=== PATIENT | female | born 1990 | race Caucasian/White ===

== ENCOUNTER 2018-01-11 08:47 | Day surgery (SDC) | payer OTHER ==
[2018-01-09 14:44] LABS: Absolute Lymphocytes (CBC) 2.9 K/uL (0.7-4.9); Absolute Monocytes 0.6 K/uL (0.1-1.3); Absolute Neutrophil 5.2 K/uL (1.8-8.0); Basophils % 0.5 % (0-1.3); Eosinophils % 1.7 % (0-4.4); Hematocrit 43.1 % (36.0-45.0); MCH 29.7 pg (27.0-35.0); MCV 87.8 fL (80-100); MPV 8.4 fL (7.6-11.3); Monocytes % 6.3 % (3.3-12.3); RBC Red Blood Cell Count 4.91 M/uL (3.86-4.86)
[2018-01-11 09:14] LABS: Specific Gravity 1.025 (1.005-1.030)
[2018-01-11] MEDS ORDERED: Ringers Lactate 1,000 ML IV ONE ×2 (09:36→11:39)
[2018-01-11] MEDS ORDERED: PHENYLEPHRINE 10% OPTH 5ML ONE (09:51)
[2018-01-11] MEDS ORDERED: Ciprofloxacin 200mg IV 400 MG/200 ML IV.SOLN. IV ONE (09:58)
[2018-01-11] MEDS ORDERED: MIDAZOLAM HCL 2 MG/2 ML INJ ONE ×2 (10:05→10:46)
[2018-01-11] MEDS ORDERED: ROCURONIUM 50 MG/5 ML VIAL IV ONE ×2 (10:05→11:27)
[2018-01-11] MEDS ORDERED: LIDOCAINE 1% MPF 5 ML VIAL ONE (10:05)
[2018-01-11] MEDS ORDERED: PROPOFOL 200 MG/20 ML VIAL IV ONE (10:05)
[2018-01-11] MEDS ORDERED: FENTANYL CITR 100 MCG/2 ML ONE ×2 (10:05→10:54)
[2018-01-11] MEDS ORDERED: GLYCOPYRROLATE 0.2 MG/ML SYR ONE ×2 (11:33)
[2018-01-11] MEDS ORDERED: NEOSTIGMINE 1 MG/ML -5 ML SYRINGE ONE (11:34)
[2018-01-11] MEDS ORDERED: ONDANSETRON 4 MG/2 ML VIAL ONE (11:35)
[2018-01-11] MEDS: MEPERIDINE HCL 50 MG/ML AMP ONE ×2 (11:51→12:05)
[2018-01-11] MEDS ORDERED: PROMETHAZINE 25 MG/ML VIAL ONE (12:07)
[2018-01-11] MEDS ORDERED: MEPERIDINE HCL 25 MG/0.5 ML ONE (12:35)
[2018-01-11] MEDS ORDERED: HYDROCODONE/APAP 7.5/325 MG TAB PO ONE (13:25)
[2018-01-11] MEDS ORDERED: HYDROCODONE/APAP 7.5/325 MG TAB ONE (13:45)
[2018-01-11 14:37] VITALS: BP 129/84; TEMP 98; O2SAT 95
--- NOTE | 2018-01-11 22:41 | OP ---
Date of Procedure: 01/11/2018 Surgeon: Darrian Amanda MD Horticulture Professor: BAYRON Evangelista. Preoperative Diagnosis: Ventral hernia. Postoperative Diagnosis: Incarcerated ventral hernia with omentum. Procedure Performed: Laparoscopic-assisted repair of incarcerated ventral hernia. Estimated Blood Loss: Minimal. Specimen: Hernia sac. Findings: As above. Anesthesia: General. Complications: None. Disposition: The patient tolerated the procedure well in stable condition and taken to Recovery in g ood general condition. Procedure In Detail: The patient was brought to the OR and placed in the supine position. General a nesthesia was begun. The patient was prepped and draped in usual sterile fashion. Marcaine 0.5% was infiltrated locally. A 15-blade was used to make a 2 cm left upper quadrant incision. Subcutaneous tissues were divided. Fascia was identified and divided. A #1 Vicryl stay suture was placed. Adore toneal cavity was entered with sharp and blunt dissection. A 12-mm trocar was placed into the perito dominic cavity under direct vision. Pneumoperitoneum was established and then 5-mm trocar was placed in the left lower quadrant. Laparoscopy revealed incarcerated ventral hernia with omentum in it, which was reduced with sharp and blunt dissection. Bleeding controlled with cautery. Then, approximately 8 cm incision was made over the hernia itself. There was a large hernia sac present, which was exci sed down to the fascial defect which was approximately 4 cm in diameter and then the hernia sac was e xcised, sent to Pathology as specimen. Good fascial edges were obtained and primary closure of the h ernia defect was done with #1 running PDS suture. Then, a large Bard mesh with the balloon system wa s placed in the peritoneal cavity and standard technique was used to secure the mesh to the peritonea l surface with complete coverage of the entire weakened ventral hernia area. There was no evidence o f bleeding or bowel injury appreciated. The balloon mechanism was removed. All parts were intact. There was another trocar that was placed in the right middle quadrant to help with Tacker, which was the absorbable Tacker was used and then all trocars were removed under direct vision. Stay sutures w ere tied to each other across the fascial defect. Subcutaneous wounds were irrigated. Bleeding cont rolled with cautery. A 3-0 chromic used for subcutaneous tissue and natalie used to close skin. Abimael rile dressing was applied. The patient was awakened and taken to Recovery in good general condition. /MODCharles Voice ID: [id number] Report ID: [id number]
--- NOTE | 2018-01-11 22:47 | DS ---
Date of Discharge: 01/11/2018 Discharge Note: The patient will go to Day Surgery and home when stable. Disposition: Home. Condition: Stable. Discharge Instructions: Resume home medications and diet. Activity as tolerated. No heavy lifting. Remove outer dressing in 2 days. Shower. Keep wound clean and dry, abdominal binder, incentive sp irometry. Tylenol #3 one tablet p.o. q.4 hours p.r.n. pain and follow up in my office in a week. Kiesha franco for appointment. RICO/CONCHIS Voice ID: [id number] Report ID: [id number]
== END 2018-01-11 14:10 | disposition home or self-care (01) ==
LOC: OR 08:47
PROVIDERS: ATTEND Surgery
PROC: 0WUF0JZ Supplement Abdominal Wall with Synthetic Substitute, Open Approach (ICD-10-PCS; principal; 2018-01-11 10:30)
DX: K43.6 Other and unspecified ventral hernia with obstruction, without gangrene (principal); Z88.0 Allergy status to penicillin; Z83.3 Family history of diabetes mellitus; Z82.49 Family history of ischemic heart disease and other diseases of the circulatory system
CPT/HCPCS: 36415; 81025; 85025; 88302; J0744; J2175; J2250; J2405; J2550; J2710; J3010

== ENCOUNTER 2019-07-06 10:56 | Emergency (ER) | payer OTHER ==
--- NOTE | 2019-07-06 11:50 | RAD REPORT ---
EXAM DESCRIPTION: CT - Ct Stroke Brain Wo Cont - 07/06/2019 11:39 am CLINICAL HISTORY: Numbness COMPARISON: none TECHNIQUE: Computed axial tomography of the head was obtained. All CT scans are performed using dose optimization technique as appropriate and may include automated exposure control or mA/KV adjustment according to patient size. FINDINGS: An intracranial bleed is not seen . The ventricles are normal in caliber. No extra-axial fluid collection is noted. Fluid within the sinuses/ mastoids is not seen. IMPRESSION: No acute intracranial abnormality is seen. If patient's symptoms persist MRI of the bra in would be recommended. Bishop of the emergency room was notified at 11:44 a.m. July 06, 2019
[2019-07-06] MEDS ORDERED: ASPIRIN 81 MG CHEWABLE TABLET ONE (11:55)
[2019-07-06] MEDS ORDERED: FOLIC ACID 5 MG/ML VIAL ONE (11:56)
[2019-07-06 12:06] LABS: Absolute Lymphocytes (CBC) 1.9 K/uL (0.7-4.9); Basophils % 0.5 % (0-1.3); Hematocrit 42.6 % (36.0-45.0); Lymphocytes % 24.6 % (15.3-44.8); MPV 8.6 fL (7.6-11.3)
[2019-07-06 12:10] LABS: Protime INR 1.11
[2019-07-06 12:14] LABS: Potassium 3.6 mmol/L (3.5-5.1)
--- NOTE | 2019-07-06 12:50 | RAD REPORT ---
EXAM DESCRIPTION: Halle Single View07/06/2019 12:41 pm CLINICAL HISTORY: Chest pain COMPARISON: 2011 FINDINGS: The lungs appear clear of acute infiltrate. The heart is normal size IMPRESSION: No acute abnormalities displayed
--- NOTE | 2019-07-06 12:58 | RAD REPORT ---
EXAM DESCRIPTION: MRI - Brain Wo Cont - 07/06/2019 12:25 pm CLINICAL HISTORY: Headache and numbness COMPARISON: July 06, 2019 TECHNIQUE: Axial, sagittal, and coronal magnetic images of the brain were obtained. Contrast was not requested FINDINGS: No abnormal signal is present within the brain. Diffusion-weighted/ADC mapping does not reveal evidence of acute infarction. The ventricles are normal caliber. An extra-axial fluid collection is not present The sinuses and mastoids are clear. IMPRESSION: Unremarkable unenhanced brain MRI
--- NOTE | 2019-07-06 13:30 | EKG ---
Test Date: 2019-07-06 Test Time: 11:44:17 Social Secretary: NORRIS MEASUREMENT RESULTS: Intervals: Rate: 65 WY: 124 QRSD: 80 QT: 406 QTc: 422 [place]: P: 12 WY: 124 QRS: 57 T: 28 INTERPRETIVE STATEMENTS: Normal sinus rhythm Normal ECG Compared to ECG 04/17/2002 07:47:00 No significant changes Electronically Signed On 07-06-19 13:29:44 CDT by Jay Veras
--- NOTE | 2019-07-06 14:03 | EDPHYS ---
Physician Documentation [facility] Name: Zayra Dockery Age: 28 yrs Sex: Female : 1990 Arrival Date: 07/06/2019 Time: 10:57 Bed 17 Private MD: ED Physician Francis Li HPI: 07/06 11:35 This 28 yrs old Female presents to ER via Unassigned with complaints of jmm Numbness - L Side, Headache. 11:35 The patient's problem is reported as paresthesias, in left upper extremity, in left jmm lower extremity. Onset: The symptoms/episode began/occurred at 10:30. Duration: This was a single incident. This is a 28 year old female with no chronic medical conditions that presents to the ED with complaints of frontal headache beginning this morning at 0630. Patient states she developed numbness to the left side of her jaw, left forearm, and left foot beginning at approx 1030 am. Patient states numbness is improving. Denies chest pain. Denies weakness. 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 - Social history:: Smoking status: Patient/guardian denies using tobacco. - Ebola Screening: : Patient denies travel to an Ebola-affected area in the 21 days before illness onset. ROS: 11:35 Constitutional: Negative for fever, chills, and weight loss, Cardiovascular: Negative jmm for chest pain, palpitations, and edema, Respiratory: Negative for shortness of breath, cough, wheezing, and pleuritic chest pain. 11:35 Neuro: Positive for headache, numbness. 11:35 All other systems are negative. Exam: 11:35 Constitutional: This is a well developed, well nourished patient who is awake, alert, jmm and in no acute distress. Head/Face: atraumatic. Eyes: EOMI, no conjunctival erythema appreciated ENT: Moist Mucus Membranes Neck: Trachea midline, Supple Chest/axilla: Normal chest wall appearance and motion. Cardiovascular: Regular rate and rhythm. No edema appreciated Respiratory: Normal respirations, no respiratory distress appreciated Abdomen/GI: Non distended, soft Back: Normal ROM Skin: General appearance color normal MS/ Extremity: Moves all extremities, no obvious deformities appreciated, no edema noted to the lower extremities 11:35 Neuro: Orientation: is normal, Mentation: is normal, Memory: is normal, Cerebellar function: normal finger to nose testing, heel to nichole testing is normal, Motor: is normal, Sensation: is normal, Gait: is steady. 11:46 ECG was reviewed by the Attending Physician. [facility] Vital Signs: 11:26 BP 139 / 100; Pulse 67; Resp 18; Temp 98.7(TE); Pulse Ox 97% on R/A; Weight 99.79 kg tw2 (R); Height 5 ft. 8 in. (172.72 cm) (R); Pain 6/10; 12:00 BP 144 / 130; Pulse 68; Resp 18; Pulse Ox 97% on R/A; mh5 13:01 BP 114 / 84; Pulse 55; Resp 17; Temp 98.0(TE); Pulse Ox 98% on R/A; mh5 13:42 BP 115 / 88; Pulse 69; Resp 15; Temp 97.8(TE); Pulse Ox 100% ; mh5 15:12 BP 115 / 84; Pulse 58; Resp 17; Pulse Ox 99% on R/A; tw2 11:26 Body Mass Index 33.45 (99.79 kg, 172.72 cm) tw2 NIH Stroke Scale Scores: 11:26 NIHSS Score: 1 tw2 11:35 NIHSS Score: 0 [facility] MDM: 11:23 Patient medically screened. [facility] 14:00 Data reviewed: vital signs, nurses notes. Counseling: I had a detailed discussion with [facility] the patient and/or guardian regarding: the historical points, exam findings, and any diagnostic results supporting the discharge/admit diagnosis, lab results, radiology results, the need for outpatient follow up, to return to the emergency department if symptoms worsen or persist or if there are any questions or concerns that arise at home. ED course: imaging studies negative. symptoms have resolved in the ED. Patient advised to follow up with neuro for reevaluation. patient was otherwise given strict return precautions. patient understood and agrees with the plan of care. . 07/06 11:33 Order name: Basic Metabolic Panel [facility] 07/06 11:33 Order name: CBC with Diff [facility] 07/06 11:33 Order name: Protime (+inr) [facility] 07/06 11:33 Order name: Ptt, Activated [facility] 07/06 11:54 Order name: Glucose, Ancillary Testing; Complete Time: 12:01 EDMS 07/06 12:14 Order name: CBC with Automated Diff; Complete Time: 12:42 EDMS 07/06 11:33 Order name: CT Stroke Brain w/o Contrast [facility] 07/06 11:33 Order name: Stroke CXR 1 View [facility] 07/06 11:45 Order name: MRI - Brain Wo Cont; Complete Time: 13:52 [facility] 07/06 12:15 Order name: Basic Metabolic Panel; Complete Time: 12:42 EDMS 07/06 12:17 Order name: CT; Complete Time: 12:42 EDMS 07/06 12:18 Order name: Protime (+INR); Complete Time: 12:42 EDMS 07/06 12:18 Order name: PTT, Activated Partial Thromb; Complete Time: 12:42 EDMS 07/06 13:05 Order name: RAD; Complete Time: 13:52 EDMS 07/06 11:33 Order name: EKG; Complete Time: 11:35 [facility] 07/06 11:33 Order name: Accucheck; Complete Time: 12:12 [facility] 07/06 11:33 Order name: Cardiac monitoring; Complete Time: 12:12 [facility] 07/06 11:33 Order name: EKG - Nurse/Tech; Complete Time: 12:12 [facility] 07/06 11:33 Order name: IV Saline Lock; Complete Time: 12:13 [facility] 07/06 11:33 Order name: Labs collected and sent; Complete Time: 12:13 [facility] 07/06 11:33 Order name: NPO; Complete Time: 12:13 [facility] 07/06 11:33 Order name: O2 Per Protocol; Complete Time: 12:13 [facility] 07/06 11:33 Order name: O2 Sat Monitoring; Complete Time: 12:13 [facility] 07/06 11:33 Order name: Stroke Swallow Screen; Complete Time: 12:13 [facility] EC:46 Rate is 65 beats/min. Rhythm is regular. QRS [place] is Normal. AR interval is normal. QRS jmm interval is normal. QT interval is normal. No Q waves. T waves are Normal. No ST changes noted. Reviewed by me. Administered Medications: 12:00 Drug: Aspirin Chewable Tablet 324 mg Route: PO; tw2 12:13 Follow up: Response: No adverse reaction tw2 12:00 Drug: foLIC Acid 1 mg Route: IVPB; Site: right wrist; tw2 12:03 Follow up: Response: No adverse reaction; IV Status: Completed infusion tw2 14:48 Drug: Reglan 10 mg Route: IVP; Site: right wrist; tw2 15:09 Follow up: Response: No adverse reaction; infusion complete, 10 mg in 100 ml NS tw2 Point of Care Testing: Blood Glucose: 11:52 Blood Glucose: 95 mg/dL; ph Ranges: Critical Glucose Levels:Adult <50 mg/dl or >400 mg/dl <40 mg/dl or >180 mg/dl Disposition: 15:52 Co-signature as Attending Physician, Francis Li MD I agree with the assessment and vidal plan of care. Disposition: 07/06/19 14:02 Discharged to Home. Impression: Headache, Paresthesia of skin. - Condition is Stable. - Discharge Instructions: Migraine Headache, Paresthesia. - Medication Reconciliation Form, Thank You Letter, Antibiotic Education, Prescription Opioid Use, Work release form, Family Work Release form. - Follow up: Mode Robertson MD; When: 2 - 3 days; Reason: Recheck today's complaints, Continuance of care, Re-evaluation by your physician. NIH Stroke Scale - NIH Stroke Score Date: 07/06/2019 Time: 11:26 Total Score = 1 1a. Level of Consciousness (LOC) - 0(Alert) 1b. Level of Consciousness (LOC) (Year \T\ Age) - 0(Both) 1c. LOC Commands (Open \T\ Closes Eyes/Postal Superintendent) - 0(Both) 2. Best Gaze (Lateral Gaze Paresis) - 0(Normal) 3. Visual Field Loss - 0(No visual loss) 4. Facial Palsy - 0(Normal) 5a. Left Arm: Motor (10-second hold) - 0(No drift) 5b. Right Arm: Motor (10-second hold) - 0(No drift) 6a. Left Leg: Motor (5-second hold - always test supine) - 0(No drift) 6b. Right Leg: Motor (5-second hold - always test supine) - 0(No drift) 7. Limb Ataxia (finger/nose \T\ heel/nichole - test with eyes open) - 0(Absent) 8. Sensory Loss (pinprick arms/legs/face) - 1(Mild to moderate loss) 9. Best Language: Aphasia (description/naming/reading) - 0(No aphasia) 10. Dysarthria (speech clarity - read or repeat words) - 0(Normal) 11. Extinction and Inattention (visual/tactile/auditory/spatial/personal) - 0(No abnormality) Initials: tw2 NIH Stroke Scale - NIH Stroke Score Date: 07/06/2019 Time: 11:35 Total Score = 0 1a. Level of Consciousness (LOC) - 0(Alert) 1b. Level of Consciousness (LOC) (Year \T\ Age) - 0(Both) 1c. LOC Commands (Open \T\ Closes Eyes/Postal Superintendent) - 0(Both) 2. Best Gaze (Lateral Gaze Paresis) - 0(Normal) 3. Visual Field Loss - 0(No visual loss) 4. Facial Palsy - 0(Normal) 5a. Left Arm: Motor (10-second hold) - 0(No drift) 5b. Right Arm: Motor (10-second hold) - 0(No drift) 6a. Left Leg: Motor (5-second hold - always test supine) - 0(No drift) 6b. Right Leg: Motor (5-second hold - always test supine) - 0(No drift) 7. Limb Ataxia (finger/nose \T\ heel/nichole - test with eyes open) - 0(Absent) 8. Sensory Loss (pinprick arms/legs/face) - 0(Normal) 9. Best Language: Aphasia (description/naming/reading) - 0(No aphasia) 10. Dysarthria (speech clarity - read or repeat words) - 0(Normal) 11. Extinction and Inattention (visual/tactile/auditory/spatial/personal) - 0(No abnormality) Initials: elliot Signatures: Dispatcher [employer] Francis Lehman MD MD cha Mickail, Joel, PA PA jmm Wise, Tara RN RN tw2 Corrections: (The following items were deleted from the chart) 15:15 14:02 07/06/2019 14:02 Discharged to Home. Impression: Headache; Paresthesia of tw2 skin. Condition is Stable. Forms are Medication Reconciliation Form, Thank You Letter, Antibiotic Education, Prescription Opioid Use. Follow up: Mode Robertson; When: 2 - 3 days; Reason: Recheck today's complaints, Continuance of care, Re-evaluation by your physician. elliot
--- NOTE | 2019-07-06 14:03 | ER ---
Nurse's Notes [facility] Name: Zayra Dockery Age: 28 yrs Sex: Female : 1990 Arrival Date: 07/06/2019 Time: 10:57 Bed 17 Private MD: Diagnosis: Headache;Paresthesia of skin Presentation: 07/06 11:25 Presenting complaint: Patient states: i woke up at 630 this morning with a CHAUHAN, i layed tw2 back down, and at 830 i still had the CHAUHAN and then my vision was blurry, then around 1030 i noticed my left hand and left lower arm was numb, then 15 minutes later my left jaw felt weird, and them my left foot went numb, i am under a lot of stress, i get frequent headaches but today is worse even hurts under my eyes. Transition of care: patient was not received from another setting of care. Onset of symptoms was July 06, 2019. Risk Assessment: Do you want to hurt yourself or someone else? Patient reports no desire to harm self or others. Initial Sepsis Screen: Does the patient meet any 2 criteria? No. Patient's initial sepsis screen is negative. Does the patient have a suspected source of infection? No. Patient's initial sepsis screen is negative. Care prior to arrival: None. 11:25 Method Of Arrival: Ambulatory tw2 11:25 Acuity: FLORENCE 2 tw2 11:25 No acute neurological deficit is noted. Pre-hospital glucose is not applicable to this tw2 patient. Triage Assessment: 11:25 The onset of the patients symptoms was less than three hours ago. General: Appears. tw2 Pain: Complains of pain in left eye and right eye and forehead. 15:15 The onset of the patients symptoms was July 06, 2019 at 10:30. tw2 SUPERVISOR PATCHING: 11:26 LMP N/A - IUD tw2 Stroke Activation: Symtpom onset >3 hours and < 6 hours Physician: Stroke Attending; Name: ; Notified At: ; Arrived At: Physician: Chief Stroke Resident; Name: ; Notified At: ; Arrived At: Physician: Stroke Resident; Name: ; Notified At: ; Arrived At: Physician: ED Attending; Name: ; Notified At: ; Arrived At: Physician: ED Resident; Name: ; Notified At: ; Arrived At: 11:25 CODE STROKE CALLED AT 1131 tw2 Historical: - Allergies: 12:11 PENICILLINS; tw2 - Home Meds: 12:11 None [Active]; tw2 - PMHx: 12:11 None; tw2 - PSHx: 12:11 IUD; tw2 - Immunization history:: Adult Immunizations. - Social history:: Smoking status: Patient/guardian denies using tobacco. - Ebola Screening: : Patient denies travel to an Ebola-affected area in the 21 days before illness onset. Screenin:14 Abuse screen: Denies threats or abuse. Nutritional screening: No deficits noted. tw2 Tuberculosis screening: No symptoms or risk factors identified. Fall Risk None identified. Assessment: 11:25 General: Appears in no apparent distress. obese, well groomed, Behavior is calm, tw2 cooperative, appropriate for age. Pain: Complains of pain in forehead, right eye and left eye. Neuro: Level of Consciousness is awake, alert, obeys commands, Oriented to person, place, time, situation, Reports headache. Cardiovascular: Heart tones S1 S2 Patient's skin is warm and dry. Respiratory: Airway is patent Respiratory effort is even, unlabored, Respiratory pattern is regular, symmetrical, Breath sounds are clear bilaterally. GI: No signs and/or symptoms were reported involving the gastrointestinal system. Abdomen is round non-distended, obese, Bowel sounds present X 4 quads. : No signs and/or symptoms were reported regarding the genitourinary system. EENT: No signs and/or symptoms were reported regarding the EENT system. Derm: No signs and/or symptoms reported regarding the dermatologic system. Musculoskeletal: Range of motion: intact in all extremities. 11:30 VAN Scoring: Arm Drift: Patients demonstrates NO arm weakness. Patient is VAN Negative. tw2 Visual Disturbance: No visual disturbance noted. Aphasia: No aphasia noted. Neglect: No neglect noted. Patient has been NPO before screening. The patient is alert, and able to follow commands. The patient does not exhibit slurred or garbled speech. The patient is not exhibiting difficulty speaking. The patient does not exhibit difficulty understanding words. The patient is able to swallow own secretions with no drooling or need for suction. Patient tolerated one teaspoon of water. No drooling, immediate coughing, gurgling, or clearing of the throat was noted. The patient tolerated 90mL of water. No drooling, immediate coughing, gurgling, or clearing of the throat was noted. The patient passed the bedside swallow screening. Oral medications may be given as ordered. Contact Physician for further diet orders. Provider notified of bedside swallow screening results: Bishop BARILLAS. 11:37 Reassessment: pt transported to CT via stretcher with ROBIN Pompa, pt NAD. tw2 12:06 Reassessment: pt transport to MRI via w/c at this time. tw2 12:28 Reassessment: pt back from MRI at this time. tw2 13:00 Reassessment: Patient appears in no apparent distress at this time. No changes from tw2 previously documented assessment. Patient and/or family updated on plan of care and expected duration. Pain level reassessed. Patient is alert, oriented x 3, equal unlabored respirations, skin warm/dry/pink. 13:56 Reassessment: Patient appears in no apparent distress at this time. No changes from tw2 previously documented assessment. Patient and/or family updated on plan of care and expected duration. Pain level reassessed. Patient is alert, oriented x 3, equal unlabored respirations, skin warm/dry/pink. provider at bedside at this time. 15:14 T-PA (Activase) Screening: Contraindications: Other: n/a. Reassessment: Patient appears tw2 in no apparent distress at this time. No changes from previously documented assessment. Patient and/or family updated on plan of care and expected duration. Pain level reassessed. Patient is alert, oriented x 3, equal unlabored respirations, skin warm/dry/pink. Vital Signs: 11:26 BP 139 / 100; Pulse 67; Resp 18; Temp 98.7(TE); Pulse Ox 97% on R/A; Weight 99.79 kg tw2 (R); Height 5 ft. 8 in. (172.72 cm) (R); Pain 6/10; 12:00 BP 144 / 130; Pulse 68; Resp 18; Pulse Ox 97% on R/A; mh5 13:01 BP 114 / 84; Pulse 55; Resp 17; Temp 98.0(TE); Pulse Ox 98% on R/A; mh5 13:42 BP 115 / 88; Pulse 69; Resp 15; Temp 97.8(TE); Pulse Ox 100% ; mh5 15:12 BP 115 / 84; Pulse 58; Resp 17; Pulse Ox 99% on R/A; tw2 11:26 Body Mass Index 33.45 (99.79 kg, 172.72 cm) tw2 NIH Stroke Scale Scores: 11:26 NIHSS Score: 1 tw2 11:35 NIHSS Score: 0 [facility] ED Course: 10:57 Patient arrived in ED. as 11:22 Bishop Acevedo PA is PHCP. jmm 11:22 Francis Li MD is Attending Physician. jmm 11:25 Arm band placed on. tw2 11:25 Placed in gown. telemetry monitor on. Pulse ox on. NIBP on. tw2 11:31 Aletha River, ROBIN is Primary Nurse. tw2 11:50 Missed attempt(s): 20 gauge in right antecubital area. Bleeding controlled, band aid tw2 applied, catheter tip intact. Missed attempt(s): 22 gauge in left antecubital area. Bleeding controlled, band aid applied, catheter tip intact. 11:54 Inserted saline lock: 22 gauge in right wrist, using aseptic technique. ph 12:05 Triage completed. tw2 12:13 Patient moved to MRI via wheelchair. em2 12:39 X-ray completed. Portable x-ray completed in exam room. Patient tolerated procedure jf well. 12:45 MRI - Brain Wo Cont In Process Unspecified. EDMS 14:01 Mode Robertson MD is Referral Physician. jm 14:47 Awaiting: COMPLETION OF IV MEDICATION AND RE-EVALUATION OF HEADACHE PRIOR TO DISCHARGE. tw2 15:14 No provider procedures requiring assistance completed. IV discontinued, intact, tw2 bleeding controlled, No redness/swelling at site. Pressure dressing applied. Administered Medications: 12:00 Drug: Aspirin Chewable Tablet 324 mg Route: PO; tw2 12:13 Follow up: Response: No adverse reaction tw2 12:00 Drug: foLIC Acid 1 mg Route: IVPB; Site: right wrist; tw2 12:03 Follow up: Response: No adverse reaction; IV Status: Completed infusion tw2 14:48 Drug: Reglan 10 mg Route: IVP; Site: right wrist; tw2 15:09 Follow up: Response: No adverse reaction; infusion complete, 10 mg in 100 ml NS tw2 Point of Care Testing: Blood Glucose: 11:52 Blood Glucose: 95 mg/dL; ph Ranges: Intake: Outcome: 14:02 Discharge ordered by MD. zarate 15:14 Discharged to home ambulatory, with family. tw2 15:14 Condition: stable 15:14 Discharge instructions given to patient, family, Instructed on discharge instructions, follow up and referral plans. Demonstrated understanding of instructions, follow-up care. 15:15 Patient left the ED. tw2 NIH Stroke Scale - NIH Stroke Score Date: 07/06/2019 Time: 11:26 Total Score = 1 1a. Level of Consciousness (LOC) - 0(Alert) 1b. Level of Consciousness (LOC) (Year \T\ Age) - 0(Both) 1c. LOC Commands (Open \T\ Closes Eyes/Television Operator) - 0(Both) 2. Best Gaze (Lateral Gaze Paresis) - 0(Normal) 3. Visual Field Loss - 0(No visual loss) 4. Facial Palsy - 0(Normal) 5a. Left Arm: Motor (10-second hold) - 0(No drift) 5b. Right Arm: Motor (10-second hold) - 0(No drift) 6a. Left Leg: Motor (5-second hold - always test supine) - 0(No drift) 6b. Right Leg: Motor (5-second hold - always test supine) - 0(No drift) 7. Limb Ataxia (finger/nose \T\ heel/nichole - test with eyes open) - 0(Absent) 8. Sensory Loss (pinprick arms/legs/face) - 1(Mild to moderate loss) 9. Best Language: Aphasia (description/naming/reading) - 0(No aphasia) 10. Dysarthria (speech clarity - read or repeat words) - 0(Normal) 11. Extinction and Inattention (visual/tactile/auditory/spatial/personal) - 0(No abnormality) Initials: tw2 NIH Stroke Scale - NIH Stroke Score Date: 07/06/2019 Time: 11:35 Total Score = 0 1a. Level of Consciousness (LOC) - 0(Alert) 1b. Level of Consciousness (LOC) (Year \T\ Age) - 0(Both) 1c. LOC Commands (Open \T\ Closes Eyes/Television Operator) - 0(Both) 2. Best Gaze (Lateral Gaze Paresis) - 0(Normal) 3. Visual Field Loss - 0(No visual loss) 4. Facial Palsy - 0(Normal) 5a. Left Arm: Motor (10-second hold) - 0(No drift) 5b. Right Arm: Motor (10-second hold) - 0(No drift) 6a. Left Leg: Motor (5-second hold - always test supine) - 0(No drift) 6b. Right Leg: Motor (5-second hold - always test supine) - 0(No drift) 7. Limb Ataxia (finger/nose \T\ heel/nichole - test with eyes open) - 0(Absent) 8. Sensory Loss (pinprick arms/legs/face) - 0(Normal) 9. Best Language: Aphasia (description/naming/reading) - 0(No aphasia) 10. Dysarthria (speech clarity - read or repeat words) - 0(Normal) 11. Extinction and Inattention (visual/tactile/auditory/spatial/personal) - 0(No abnormality) Initials: elliot Signatures: Dispatcher [employer] EDBishop Fofana PA PA jmm Martinez, Amelia as Montes, Enrique 2 Heide Vazquez, RN RN Aletha River RN RN 2 Arlin Vaz 5 Tan Renner
[2019-07-06] MEDS ORDERED: METOCLOPRAMIDE 10 MG/2mL INJ ONE (14:48)
[2019-07-06] MEDS ORDERED: NA CHLORIDE 0.9% 100 ML IV ONE (14:48)
[2019-07-06 15:55] VITALS: TEMP 97.8
[2019-07-06 15:56] VITALS: BP 115/84; O2SAT 99
== END 2019-07-06 15:15 | disposition home or self-care (01) ==
LOC: ER 10:56
DX: R20.2 Paresthesia of skin (principal); Z88.0 Allergy status to penicillin
CPT/HCPCS: 93005; 85025; 80048; 36415; 85610; 82962; 85730; 70450; 71045; 70551; 96375; 96374; 99285; J2765

== ENCOUNTER 2022-05-30 18:01 | Emergency (ER) | payer OTHER ==
[2022-05-30] MEDS ORDERED: METOCLOPRAMIDE 10 MG/2mL INJ ONE (18:32)
[2022-05-30] MEDS ORDERED: METHYLPREDNISOLONE 125 MG INJ ONE (18:32)
[2022-05-30] MEDS ORDERED: DIPHENHYDRAMINE 50 MG/ML VIAL ONE (18:33)
[2022-05-30] MEDS ORDERED: NA CHLORIDE 0.9% 1,000 ML ONE (18:33)
[2022-05-30] MEDS ORDERED: KETOROLAC 30 MG/ML INJ ONE (18:33)
--- NOTE | 2022-05-30 20:29 | EDPHYS ---
Physician Documentation [facility] Name: Zayra Dockery Age: 31 yrs Sex: Female : 1990 Arrival Date: 05/30/2022 Time: 18:03 Bed 18 Private MD: ED Physician Haylie Fermin HPI: 05/30 18:20 This 31 yrs old Female presents to ER via Ambulatory with complaints of Migraine. jh7 18:20 Onset: The symptoms/episode began/occurred this morning. Associated signs and symptoms: jh7 Pertinent positives: Photophobia, nausea, Pertinent negatives: abdominal pain, chest pain. Patient presents to the ER with complaints of a migraine headache. States that she woke up this morning with a headache over her forehead. Reports that she took Tylenol and ibuprofen this morning with no relief. Reports mild photophobia and nausea. No weakness, dizziness, syncope, or visual changes.. Historical: - Allergies: 18:16 PENICILLINS; ll1 - PMHx: 18:24 None; ll1 - PSHx: 18:24 LEEP; hernia repair; ll1 - Immunization history:: Client reports having NOT received the Covid vaccine. - Social history:: Smoking status: Patient denies any tobacco usage or history of. ROS: 18:20 Constitutional: Negative for fever, chills, and weight loss, Eyes: Negative for injury, jh7 pain, redness, and discharge, ENT: Negative for injury, pain, and discharge, Neck: Negative for injury, pain, and swelling, Cardiovascular: Negative for chest pain, palpitations, and edema, Respiratory: Negative for shortness of breath, cough, wheezing, and pleuritic chest pain, Abdomen/GI: Negative for abdominal pain, nausea, vomiting, diarrhea, and constipation, Back: Negative for injury and pain, MS/Extremity: Negative for injury and deformity. 18:20 Neuro: Positive for headache, Photophobia. 18:20 All other systems are negative. Exam: 18:20 Constitutional: This is a well developed, well nourished patient who is awake, alert, jh7 and in no acute distress. Head/Face: Normocephalic, atraumatic. Eyes: Pupils equal round and reactive to light, extra-ocular motions intact. Lids and lashes normal. Conjunctiva and sclera are non-icteric and not injected. Cornea within normal limits. Periorbital areas with no swelling, redness, or edema. ENT: Nares patent. No nasal discharge, no septal abnormalities noted. Tympanic membranes are normal and external auditory canals are clear. Oropharynx with no redness, swelling, or masses, exudates, or evidence of obstruction, uvula midline. Mucous membranes moist. Neck: Trachea midline, no thyromegaly or masses palpated, and no cervical lymphadenopathy. Supple, full range of motion without nuchal rigidity, or vertebral point tenderness. No Meningismus. Cardiovascular: Regular rate and rhythm with a normal S1 and S2. No gallops, murmurs, or rubs. Normal PMI, no JVD. No pulse deficits. Respiratory: Lungs have equal breath sounds bilaterally, clear to auscultation and percussion. No rales, rhonchi or wheezes noted. No increased work of breathing, no retractions or nasal flaring. Abdomen/GI: Soft, non-tender. No guarding or rebound. No evidence of tenderness throughout. Back: No spinal tenderness. No costovertebral tenderness. Full range of motion. Skin: Warm, dry with normal turgor. Normal color with no rashes, no lesions, and no evidence of cellulitis. MS/ Extremity: Pulses equal, no cyanosis. Neurovascular intact. Full, normal range of motion. 18:20 Neuro: Orientation: is normal, Mentation: is normal, Memory: is normal, Cranial nerves: grossly normal, Cerebellar function: is grossly normal, Motor: is normal, Sensation: is normal. Vital Signs: 18:24 BP 125 / 77; Pulse 98; Resp 17; Temp 100.5(TE); Pulse Ox 99% on R/A; Weight 97.98 kg; ll1 Height 5 ft. 8 in. (172.72 cm); Pain 10/10; 18:39 BP 126 / 62; Pulse 89; Resp 16; Pulse Ox 98% on R/A; hb 19:43 BP 108 / 60; Pulse 82; Resp 15; Pulse Ox 99% on R/A; hb 18:24 Body Mass Index 32.84 (97.98 kg, 172.72 cm) 1 MDM: 18:16 Patient medically screened. [facility] 20:28 Data reviewed: vital signs, nurses notes. Data interpreted: Pulse oximetry: on room air kb is 99 %. Interpretation: normal. Counseling: I had a detailed discussion with the patient and/or guardian regarding: the historical points, exam findings, and any diagnostic results supporting the discharge/admit diagnosis, lab results, the need for outpatient follow up, a family practitioner, to return to the emergency department if symptoms worsen or persist or if there are any questions or concerns that arise at home. 05/30 18:59 Order name: SARS-COV-2 RT PCR (Document "Date of Onset" if Symptomatic); Complete Time: [facility] 20:28 Administered Medications: 18:38 Drug: NS 0.9% 1000 ml Route: IV; Rate: 1 bolus; Site: right antecubital; hb 18:39 Drug: SOLU-Medrol (methylPrednisoLONE) 125 mg Route: IVP; Site: right antecubital; hb 19:44 Follow up: Response: No adverse reaction hb 18:39 Drug: Benadryl (diphenhydrAMINE) 25 mg Route: IVP; Site: right antecubital; hb 20:01 Follow up: Response: No adverse reaction hb 18:39 Drug: Reglan (metoCLOPramide) 10 mg Route: IVP; Site: right antecubital; hb 19:44 Follow up: Response: No adverse reaction hb 18:39 Drug: Ketorolac 30 mg Route: IVP; Site: right antecubital; hb 19:44 Follow up: Response: No adverse reaction hb Disposition Summary: 05/30/22 20:28 Discharge Ordered Location: Home kb Condition: Stable kb Diagnosis - SARS-associated coronavirus as the cause of diseases classified elsewhere kb Followup: kb - With: Emergency Department - When: As needed - Reason: Worsening of condition Followup: kb - With: Private Physician - When: 2 - 3 days - Reason: Recheck today's complaints, Continuance of care, Re-evaluation by your physician Discharge Instructions: - Discharge Summary Sheet kb - COVID-19 kb - Viral Illness, Adult kb Forms: - Medication Reconciliation Form kb - Thank You Letter kb - Antibiotic Education kb - Prescription Opioid Use kb Signatures: Dispatcher [employer] Karol Yang FNP-C FNP-Camelia Ronquillo RN RN Tamika Bedoya RN RN 1 Hadash, Candi, LOGISTICS OPERATIONS MANAGER LOGISTICS OPERATIONS MANAGER jh7
--- NOTE | 2022-05-30 20:29 | ER ---
Nurse's Notes [facility] Name: Zayra Dockery Age: 31 yrs Sex: Female : 1990 Arrival Date: 05/30/2022 Time: 18:03 Bed 18 Private MD: Diagnosis: SARS-associated coronavirus as the cause of diseases classified elsewhere Presentation: 05/30 18:24 Chief complaint: Patient states: CHAUHAN with nausea for 1 day. Fever off/on today. ll1 Coronavirus screen: Vaccine status: Patient reports being unvaccinated. Client denies travel out of the [place] in the last 14 days. fatigue, fever, headache, Client presents with at least one sign or symptom that may indicate coronavirus-19. Standard/surgical mask placed on the client. Ebola Screen: Patient denies travel to an Ebola-affected area in the 21 days before illness onset. Initial Sepsis Screen: Does the patient meet any 2 criteria? No. Patient's initial sepsis screen is negative. Does the patient have a suspected source of infection? Yes: S/S of meningitis or endocarditis. Risk Assessment: Do you want to hurt yourself or someone else? Patient reports no desire to harm self or others. Onset of symptoms was May 30, 2022. 18:24 Method Of Arrival: Ambulatory 1 18:24 Acuity: FLORENCE 3 ll1 Triage Assessment: 18:25 General: Appears uncomfortable, Behavior is calm, cooperative, appropriate for age. ll1 General: fever. Pain: Complains of pain in head Pain currently is 10 out of 10 on a pain scale. Quality of pain is described as aching. Neuro: Reports headache. Historical: - Allergies: 18:16 PENICILLINS; ll1 - PMHx: 18:24 None; ll1 - PSHx: 18:24 LEEP; hernia repair; ll1 - Immunization history:: Client reports having NOT received the Covid vaccine. - Social history:: Smoking status: Patient denies any tobacco usage or history of. Screenin:37 Abuse screen: Denies threats or abuse. Denies injuries from another. Nutritional hb screening: No deficits noted. Tuberculosis screening: No symptoms or risk factors identified. Fall Risk None identified. Assessment: 18:37 General: Appears in no apparent distress. Behavior is calm, cooperative. Pain: Pain hb currently is 10 out of 10 on a pain scale. Neuro: Level of Consciousness is awake, alert, obeys commands, Oriented to person, place, time, situation, Reports numbness photophobia. Cardiovascular: Patient's skin is warm and dry. Respiratory: Respiratory effort is even, unlabored, Respiratory pattern is regular, symmetrical. GI: No signs and/or symptoms were reported involving the gastrointestinal system. : No signs and/or symptoms were reported regarding the genitourinary system. EENT: No signs and/or symptoms were reported regarding the EENT system. Derm: Skin is pink, warm \T\ dry. Musculoskeletal: No signs and/or symptoms reported regarding the musculoskeletal system. 19:59 Reassessment: Patient appears in no apparent distress at this time. Patient and/or hb family updated on plan of care and expected duration. Pain level reassessed. Patient is alert, oriented x 3, equal unlabored respirations, skin warm/dry/pink. Vital Signs: 18:24 BP 125 / 77; Pulse 98; Resp 17; Temp 100.5(TE); Pulse Ox 99% on R/A; Weight 97.98 kg; ll1 Height 5 ft. 8 in. (172.72 cm); Pain 10/10; 18:39 BP 126 / 62; Pulse 89; Resp 16; Pulse Ox 98% on R/A; hb 19:43 BP 108 / 60; Pulse 82; Resp 15; Pulse Ox 99% on R/A; hb 18:24 Body Mass Index 32.84 (97.98 kg, 172.72 cm) ll1 ED Course: 18:03 Patient arrived in ED. rg4 18:12 Candi Hester FNP is PHCP. 7 18:12 Haylie Fermin MD is Attending Physician. 7 18:15 Arm band placed on Patient placed in an exam room, on a stretcher. ll1 18:25 Triage completed. ll1 18:37 Patient has correct armband on for positive identification. hb 18:37 Inserted saline lock: 20 gauge in right antecubital area, using aseptic technique. hb 19:43 Camelia Crandall, RN is Primary Nurse. hb 19:48 PHCP role handed off by Candi Hester FNP kb 19:48 Karol Langley FNP-C is PHCP. kb 20:42 No provider procedures requiring assistance completed. IV discontinued, intact, ll3 bleeding controlled, No redness/swelling at site. Pressure dressing applied. Administered Medications: 18:38 Drug: NS 0.9% 1000 ml Route: IV; Rate: 1 bolus; Site: right antecubital; hb 18:39 Drug: SOLU-Medrol (methylPrednisoLONE) 125 mg Route: IVP; Site: right antecubital; hb 19:44 Follow up: Response: No adverse reaction hb 18:39 Drug: Benadryl (diphenhydrAMINE) 25 mg Route: IVP; Site: right antecubital; hb 20:01 Follow up: Response: No adverse reaction hb 18:39 Drug: Reglan (metoCLOPramide) 10 mg Route: IVP; Site: right antecubital; hb 19:44 Follow up: Response: No adverse reaction hb 18:39 Drug: Ketorolac 30 mg Route: IVP; Site: right antecubital; hb 19:44 Follow up: Response: No adverse reaction hb Medication: 18:37 VIS not applicable for this client. hb Outcome: 20:28 Discharge ordered by MD. kb 20:42 Discharged to home ambulatory. ll3 20:42 Condition: stable 20:42 Discharge instructions given to patient, Instructed on discharge instructions, follow up and referral plans. Demonstrated understanding of instructions, follow-up care. 20:42 Patient left the ED. ll3 Signatures: Karol Langley, SURVEYING TEACHER-C SURVEYING TEACHER-Ckb Camelia Crandall RN RN hb Garcia, Rubi 4 Tamika Garcia RN RN ll1 Praveen Craig RN RN 3 Candi Hester [facility]7
[2022-05-30 21:56] VITALS: TEMP 100.5
[2022-05-30 22:03] VITALS: BP 108/60; O2SAT 99
== END 2022-05-30 20:42 | disposition home or self-care (01) ==
LOC: ER 18:01
DX: U07.1 COVID-19 (principal); Z88.0 Allergy status to penicillin
CPT/HCPCS: 96374; 96375; 99283; J1200; J2765; J2930; J7030; U0003